=== PATIENT | male | born 2000 | race Two or more races ===

== ENCOUNTER 2018-09-13 05:55 | Inpatient (IN) | payer MEDICAID, OTHER | END 2018-09-14 12:50 | disposition home or self-care (01) | LOC: ER 05:55 → OVERFLOW 10:57 → WEST WING 16:51 | DX: N13.2 Hydronephrosis with renal and ureteral calculous obstruction (principal) ==

== ENCOUNTER 2018-09-17 00:34 | Inpatient (IN) | payer MEDICAID ==
[~2018-09-17] VITALS: Ht 172.7 cm; Wt 56.6 kg
[2018-09-17 01:37] LABS: Basophils # (auto) 0 uL; Basophils % (auto) 0.3 % (0.0-2.0); Eosinophils # (auto) 0 uL; Eosinophils % (auto) 0.4 % (0.0-7.0); Hematocrit 43.8 % (41.0-53.0); Hemoglobin 14.8 g/dL (13.5-17.5); Lymphocytes # (auto) 1.4 uL; Lymphocytes % (auto) 12.5 % (10.0-50.0); Mean Corpuscular Hemoglobin 28.8 pg (28.0-32.0); Mean Corpuscular Hgb Conc. 33.9 g/dL (32.0-36.0); Mean Corpuscular Volume 84.9 fL (80.0-100.0); Monocytes # (auto) 0.8 uL; Monocytes % (auto) 7.3 % (0.0-12.0); Neutrophils # (auto) 9.1 uL; Neutrophils % (auto) 79.5 % (37.0-80.0); Platelet Count (auto) 302 10^3/uL (140-450); Red Blood Cells 5.16 10^6/uL (4.5-5.90); Red Cell Distribution Width 13.6 % (11.8-14.3); White Blood Cell 11.4 10^3/uL (4.4-10.8)
[2018-09-17 01:45] LABS: Urine Amorphous Crystal FEW /hpf (None Seen); Urine Bacteria FEW /hpf (None Seen); Urine Blood 3+ /uL (Negative); Urine Mucus FEW (None Seen); Urine Specific Gravity 1.016 (1.001-1.035); Urine WBC 2 /hpf (0 - 3)
[2018-09-17 01:53] LABS: Albumin 4.2 g/dL (3.4-5.0); BUN/Creatinine Ratio 12.6; Calcium 10.3 mg/dL (8.5-10.1); Magnesium 2.2 mg/dL (1.6-2.6); Potassium 3.9 mmol/L (3.5-5.1)
[2018-09-17 01:55] LABS: Bilirubin, Total 0.5 mg/dL (0.2-1.0); Total Protein 7.9 g/dL (6.4-8.2)
[2018-09-17] MEDS ORDERED: SODIUM CHLORIDE 0.9% 1,000 ML IV ONE (06:27)
[2018-09-17] MEDS ORDERED: KETOROLAC TROMETH 30 MG/ML 1ML VIAL IV ONE (06:30)
[2018-09-17] MEDS ORDERED: ONDANSETRON HCL 4 MG/2 ML VIAL IV PRN (07:45)
[2018-09-17] MEDS ORDERED: ACETAMINOPHEN 500 MG TAB PO PRN (07:45)
[2018-09-17] MEDS ORDERED: SODIUM CHLORIDE 0.9% 1,000 ML IV SCH (07:45)
[2018-09-17] MEDS ORDERED: MANNITOL 20% SOLN 100 gm/500ml 300 ML IV ONE (14:15)
[2018-09-17 14:24] LABS: Alcohol, Urine < 3.0 mg/dL (0-5); Amphetamine Screen, Urine NEGATIVE (NEGATIVE); Barbiturate Scree,Urine NEGATIVE (NEGATIVE); Benzodiazephine Screen, Urine NEGATIVE (NEGATIVE); Cannabinoid Screen, Urine NEGATIVE (NEGATIVE); Cocaine Screen, Urine NEGATIVE (NEGATIVE); Opiate Scree,Urine NEGATIVE (NEGATIVE); Phencyclidine Screen, Urine NEGATIVE (NEGATIVE)
[2018-09-17] MEDS ORDERED: MANNITOL 20 % (20GM/100ML) 500 ML IV ONE (14:55)
[2018-09-17] MEDS ORDERED: FUROSEMIDE 20 MG/2 ML VIAL IV ONE (15:00)
[2018-09-17] MEDS: SODIUM CHLORIDE 0.9% 1,000 ML IV SCH ×2 (15:52→19:51)
[2018-09-17] MEDS: KETOROLAC TROMETH 30 MG/ML 1ML VIAL IV PRN (16:30)
--- NOTE | 2018-09-17 17:55 | NUR ---
MS admit from ER EZEKIEL CRAWFORD admitted to tele/MS after SBAR received. Patient oriented to SHORTY HUITRON, primary RN, unit, room, bed, and unit policies regarding patient care and visiting hours. Patient weighed by bedscale and encouraged to call if they need something. All questions and concerns addressed, patient verbalized understanding.
[2018-09-17] MEDS ORDERED: TAMSULOSIN HYDROCHLORIDE 0.4 MG CAP PO SCH (18:00)
--- NOTE | 2018-09-17 18:17 | NUR ---
Contacted Dr. Mora regarding patient diet, left a message.
--- NOTE | 2018-09-17 19:10 | NUR ---
CLOSING NOTE PATIENT RESTING IN BED, NO SIGNS OF DISTRESS NOTED. REPORT GIVEN TO NIGHT RN.
--- NOTE | 2018-09-17 19:30 | NUR ---
Opening Shift Note: A&Ox4, resting in bed. Room air, pain level 0/10, and ambulates independently. Bed locked in lowest position, side rails up x2, and call light within reach. IV 18 g in left AC running NS at 150 ml/hr inserted on 09/27/18. Skin intact. Order to strain all urine; patietn aware. POC discussed and questions answered. Will continue to round prn.
--- NOTE | 2018-09-17 19:45 | NUR ---
MRSA swab sent to lab via [email or web address] system.
[2018-09-17] MEDS: POTASSIUM CHL 20 Meq TABLET PO SCH (19:52)
--- NOTE | 2018-09-17 20:00 | NUR ---
Page sent for diet order. Per Dr. Hall, regular diet but NPO at 0000 for possible procedure.
[2018-09-17 22:17] VITALS: BP 109/55
--- NOTE | 2018-09-18 | NUR ---
NPO for possible procedure; urology consult pending.
[2018-09-18] MEDS: KETOROLAC TROMETH 30 MG/ML 1ML VIAL IV PRN (01:02)
[2018-09-18] MEDS: SODIUM CHLORIDE 0.9% 1,000 ML IV SCH ×2 (03:04→10:15)
[2018-09-18 04:48] VITALS: BP 105/56
[2018-09-18 06:54] LABS: Basophils # (auto) 0 uL; Basophils % (auto) 0.3 % (0.0-2.0); Eosinophils # (auto) 0.1 uL; Hematocrit 39.8 % (41.0-53.0); Hemoglobin 13.6 g/dL (13.5-17.5); Lymphocytes # (auto) 1.6 uL; Lymphocytes % (auto) 22.6 % (10.0-50.0); Mean Corpuscular Hemoglobin 29.2 pg (28.0-32.0); Mean Corpuscular Hgb Conc. 34.2 g/dL (32.0-36.0); Mean Corpuscular Volume 85.5 fL (80.0-100.0); Monocytes # (auto) 0.9 uL; Monocytes % (auto) 13.1 % (0.0-12.0); Neutrophils # (auto) 4.4 uL; Nucleated Red Blood Cells % 0.1 %; Platelet Count (auto) 249 10^3/uL (140-450); Red Blood Cells 4.66 10^6/uL (4.5-5.90); Red Cell Distribution Width 13.7 % (11.8-14.3); White Blood Cell 6.9 10^3/uL (4.4-10.8)
[2018-09-18 07:02] LABS: BUN/Creatinine Ratio 6.1; Calcium 10.3 mg/dL (8.5-10.1); Potassium 3.9 mmol/L (3.5-5.1)
--- NOTE | 2018-09-18 07:50 | NUR ---
Opening Shift Note Assumed care of patient, awake and alert. No S/S of distress/SOB or pain. Instructed on POC and to call for assist PRN, will continue to monitor for changes Q1hr and PRN.
[2018-09-18 09:00] VITALS: BP 101/68
[2018-09-18] MEDS ORDERED: FUROSEMIDE 20 MG/2 ML VIAL IV SCH (10:00)
[2018-09-18] MEDS: POTASSIUM CHL 20 Meq TABLET PO SCH (10:04)
--- NOTE | 2018-09-18 11:10 | NUR ---
Rocio, charge nurse, informed me that patient wants to leave AMA.
--- NOTE | 2018-09-18 11:12 | NUR ---
IV removal per patient request IV DC'd with clean sterile technique, catheter fully intact. Pressure dressing applied to site. Patient tolerated well.
--- NOTE | 2018-09-18 11:15 | NUR ---
AMA Note EZEKIEL CRAWFORD states they want to leave the hospital Against Medical Advice (AMA). Patient encouraged to stay for further treatment/stabilization. Patient advised of the risks and benefits of leaving AMA. Patient verbalized understanding. Patient encouraged to return to the ER if symptoms do not improve or worsen.
--- NOTE | 2018-09-18 11:20 | NUR ---
CALLED DR. SWARTZ, LEFT A MESSAGE RE: PATIENT LEFT AMA.
== END 2018-09-18 11:13 | disposition left against medical advice (07) | DRG 465 ==
LOC: ER 00:35 → OVERFLOW 07:38 → WEST WING 18:08
PROVIDERS: ADMIT Nurse Practitioner Family; ATTEND Hospitalist
DX: N13.2 Hydronephrosis with renal and ureteral calculous obstruction (principal); Z82.49 Family history of ischemic heart disease and other diseases of the circulatory system; Z83.3 Family history of diabetes mellitus; Z87.442 Personal history of urinary calculi
CPT/HCPCS: 36415; 74018; 74176; 80048; 80053; 80307; 81001; 82150; 83690; 83735; 85025; 87081; 96361; 96365; 96375; G0378; J1885; J2405

== ENCOUNTER 2019-11-15 20:11 | Emergency (ER) | payer MEDICAID ==
[~2019-11-15] VITALS: Ht 170.2 cm; Wt 68.7 kg
[2019-11-15 20:56] VITALS: BP 122/78
== END 2019-11-16 00:59 | disposition left against medical advice (07) ==
LOC: ER 20:11
DX: M79.604 Pain in right leg (principal); Z53.21 Procedure and treatment not carried out due to patient leaving prior to being seen by health care provider

== ENCOUNTER 2020-06-21 14:34 | Emergency (ER) | payer MEDICAID ==
[~2020-06-21] VITALS: Ht 177.8 cm; Wt 70.4 kg
[2020-06-21 15:19] LABS: Urine Bacteria NONE SEEN /hpf (None Seen); Urine Blood 2+ /uL (Negative); Urine Specific Gravity 1.007 (1.001-1.035); Urine WBC 2 /hpf (0 - 3)
[2020-06-21 15:54] LABS: Basophils # (auto) 0 10 ^3/uL (0-0.2); Basophils % (auto) 0.2 % (0.0-2.0); Eosinophils # (auto) 0.1 10 ^3/uL (0-0.8); Eosinophils % (auto) 0.7 % (0.0-7.0); Lymphocytes # (auto) 1.5 10 ^3/uL (0.4-5.4); Mean Corpuscular Hemoglobin 27.9 pg (28.0-32.0); Mean Corpuscular Hgb Conc. 33.2 g/dL (32.0-36.0); Monocytes # (auto) 1.2 10 ^3/uL (0-1.3); Monocytes % (auto) 10.7 % (0.0-12.0); Neutrophils # (auto) 8.7 10 ^3/uL (1.6-8.6); Neutrophils % (auto) 75.4 % (37.0-80.0); Nucleated Red Blood Cells % 0.1 %; Platelet Count (auto) 327 10^3/uL (140-450); Red Blood Cells 5.35 10^6/uL (4.5-5.90); Red Cell Distribution Width 14.2 % (11.8-14.3); White Blood Cell 11.5 10^3/uL (4.4-10.8)
[2020-06-21] MEDS ORDERED: ONDANSETRON HCL 4 MG/2 ML VIAL IV ONE (18:30)
[2020-06-21] MEDS ORDERED: KETOROLAC TROMETH 30 MG/ML 1ML VIAL IV ONE (18:30)
[2020-06-21] MEDS ORDERED: SODIUM CHLORIDE 0.9% 1,000 ML IV ONE (18:30)
[2020-06-21 18:45] LABS: Alcohol, Urine < 3.0 mg/dL (0-10); Amphetamine Screen, Urine NEGATIVE (NEGATIVE); Barbiturate Scree,Urine NEGATIVE (NEGATIVE); Benzodiazephine Screen, Urine NEGATIVE (NEGATIVE); Cannabinoid Screen, Urine NEGATIVE (NEGATIVE); Cocaine Screen, Urine NEGATIVE (NEGATIVE); Opiate Scree,Urine NEGATIVE (NEGATIVE); Phencyclidine Screen, Urine NEGATIVE (NEGATIVE)
[2020-06-21 18:47] LABS: Albumin 4.4 g/dL (3.4-5.0); Calcium 11.4 mg/dL (8.5-10.1); Potassium 4.2 mmol/L (3.5-5.1)
[2020-06-21 18:51] LABS: BUN/Creatinine Ratio 9.9; Bilirubin, Total 0.3 mg/dL (0.2-1.0)
[2020-06-21 21:00] VITALS: BP 116/71
== END 2020-06-21 21:38 | disposition home or self-care (01) ==
LOC: ER 14:34
DX: N20.0 Calculus of kidney (principal)
CPT/HCPCS: 36415; 74176; 80053; 80307; 81001; 85025; 96361; 96374; 96375; 99285; J1885; J2405

== ENCOUNTER 2020-07-12 07:51 | Emergency (ER) | payer MEDICAID ==
[~2020-07-12] VITALS: Ht 172.7 cm; Wt 68.0 kg
[2020-07-12] MEDS ORDERED: KETOROLAC TROMETH 30 MG/ML 1ML VIAL IV ONE (08:15)
[2020-07-12] MEDS ORDERED: SODIUM CHLORIDE 0.9% 1,000 ML IVB ONE (08:15)
[2020-07-12] MEDS ORDERED: METOCLOPRAMIDE HCL 5MG/ml INJ 2ml VIAL IV ONE (08:15)
[2020-07-12 08:38] LABS: Urine Bacteria NONE SEEN /hpf (None Seen); Urine Blood 2+ /uL (Negative); Urine Specific Gravity 1.006 (1.001-1.035); Urine WBC 21 /hpf (0 - 3)
[2020-07-12 10:39] VITALS: BP 125/63
== END 2020-07-12 11:12 | disposition home or self-care (01) ==
LOC: ER 07:51
DX: N20.0 Calculus of kidney (principal); N13.30 Unspecified hydronephrosis
CPT/HCPCS: 76775; 81001; 96361; 96374; 96375; 99284; J1885; J2765; J7030

== ENCOUNTER 2020-08-19 18:08 | Emergency (ER) | payer MEDICAID ==
[~2020-08-19] VITALS: Ht 172.7 cm; Wt 54.4 kg
[2020-08-19 18:46] VITALS: BP 147/81
[2020-08-19] MEDS ORDERED: KETOROLAC TROMETH 60MG/2ML VIAL ONE (20:25)
[2020-08-19] MEDS ORDERED: KETOROLAC TROMETH 60MG/2ML VIAL IM ONE (20:30)
[2020-08-19 20:53] LABS: Urine Bacteria FEW /hpf (None Seen); Urine Blood 2+ /uL (Negative); Urine Mucus FEW (None Seen); Urine Specific Gravity 1.015 (1.001-1.035); Urine WBC 1 /hpf (0 - 3)
[2020-08-19 21:24] LABS: Basophils # (auto) 0 10 ^3/uL (0-0.2); Basophils % (auto) 0.3 % (0.0-2.0); Eosinophils # (auto) 0.1 10 ^3/uL (0-0.8); Eosinophils % (auto) 0.6 % (0.0-7.0); Hemoglobin 14.4 g/dL (13.5-17.5); Lymphocytes # (auto) 1.5 10 ^3/uL (0.4-5.4); Lymphocytes % (auto) 14.9 % (10.0-50.0); Mean Corpuscular Hemoglobin 27.4 pg (28.0-32.0); Mean Corpuscular Hgb Conc. 32.8 g/dL (32.0-36.0); Mean Corpuscular Volume 83.6 fL (80.0-100.0); Monocytes # (auto) 1.2 10 ^3/uL (0-1.3); Monocytes % (auto) 12.2 % (0.0-12.0); Neutrophils # (auto) 7.1 10 ^3/uL (1.6-8.6); Platelet Count (auto) 370 10^3/uL (140-450); Red Blood Cells 5.26 10^6/uL (4.5-5.90); Red Cell Distribution Width 14.2 % (11.8-14.3); White Blood Cell 9.9 10^3/uL (4.4-10.8)
[2020-08-19 21:34] LABS: Albumin 4.3 g/dL (3.4-5.0); Calcium 11.1 mg/dL (8.5-10.1); Potassium 3.9 mmol/L (3.5-5.1)
[2020-08-19 21:39] LABS: Alcohol, Urine < 3.0 mg/dL (0-10); Amphetamine Screen, Urine NEGATIVE (NEGATIVE); Barbiturate Scree,Urine NEGATIVE (NEGATIVE); Benzodiazephine Screen, Urine NEGATIVE (NEGATIVE); Cannabinoid Screen, Urine NEGATIVE (NEGATIVE); Cocaine Screen, Urine NEGATIVE (NEGATIVE); Opiate Scree,Urine NEGATIVE (NEGATIVE); Phencyclidine Screen, Urine NEGATIVE (NEGATIVE)
[2020-08-19 21:39] LABS: BUN/Creatinine Ratio 8.1; Bilirubin, Total 0.4 mg/dL (0.2-1.0); Total Protein 7.8 g/dL (6.4-8.2)
== END 2020-08-19 23:21 | disposition home or self-care (01) ==
LOC: ER 18:08
DX: N13.2 Hydronephrosis with renal and ureteral calculous obstruction (principal)
CPT/HCPCS: 36415; 74176; 80053; 80307; 81001; 85025; 96372; 99284; J1885

== ENCOUNTER 2020-09-17 07:42 | Emergency (ER) | payer MEDICAID ==
[~2020-09-17] VITALS: Ht 170.2 cm; Wt 49.9 kg
[2020-09-17 07:45] VITALS: BP 121/86
[2020-09-17] MEDS ORDERED: SODIUM CHLORIDE 0.9% 1,000 ML IV ONE (08:00)
[2020-09-17] MEDS ORDERED: TAMSULOSIN HYDROCHLORIDE 0.4 MG CAP PO ONE (08:00)
[2020-09-17] MEDS ORDERED: ONDANSETRON HCL 4 MG/2 ML VIAL IV ONE (08:00)
[2020-09-17] MEDS ORDERED: KETOROLAC TROMETH 30 MG/ML 1ML VIAL IV ONE (08:00)
[2020-09-17 08:22] LABS: Basophils # (auto) 0 10 ^3/uL (0-0.2); Basophils % (auto) 0.6 % (0.0-2.0); Eosinophils # (auto) 0.1 10 ^3/uL (0-0.8); Eosinophils % (auto) 1.5 % (0.0-7.0); Hematocrit 42.1 % (41.0-53.0); Hemoglobin 14.3 g/dL (13.5-17.5); Lymphocytes # (auto) 2.4 10 ^3/uL (0.4-5.4); Lymphocytes % (auto) 39.2 % (10.0-50.0); Mean Corpuscular Hemoglobin 28.5 pg (28.0-32.0); Mean Corpuscular Volume 83.7 fL (80.0-100.0); Monocytes # (auto) 0.7 10 ^3/uL (0-1.3); Monocytes % (auto) 11.7 % (0.0-12.0); Neutrophils # (auto) 2.8 10 ^3/uL (1.6-8.6); Platelet Count (auto) 329 10^3/uL (140-450); Red Blood Cells 5.03 10^6/uL (4.5-5.90); Red Cell Distribution Width 14.5 % (11.8-14.3)
[2020-09-17 08:35] LABS: BUN/Creatinine Ratio 14.7; Potassium 3.9 mmol/L (3.5-5.1)
== END 2020-09-17 09:36 | disposition home or self-care (01) ==
LOC: ER 07:42
DX: R10.9 Unspecified abdominal pain (principal); Z87.442 Personal history of urinary calculi
CPT/HCPCS: 36415; 80048; 85025; 96361; 96374; 96375; 99284; J1885; J2405; J7030

== ENCOUNTER 2021-08-07 04:14 | Emergency (ER) | payer MEDICAID ==
[~2021-08-07] VITALS: Ht 172.7 cm; Wt 55.8 kg
[2021-08-07] MEDS ORDERED: KETOROLAC TROMETH 30 MG/ML 1ML VIAL IV ONE (05:15)
[2021-08-07] MEDS ORDERED: LIDOCAINE 1% HCL (LOCAL ANESTH.) INJ 20ML MDV ID ONE (05:15)
[2021-08-07] MEDS ORDERED: MORPHINE SULFATE 4 MG/ML SYR/VIAL IV ONE (05:15)
[2021-08-07] MEDS ORDERED: LIDOCAINE VISCOUS 2% 15ML UD MT ONE (05:30)
[2021-08-07 05:50] LABS: Albumin 4.1 g/dL (3.4-5.0); BUN/Creatinine Ratio 14.1; Calcium 11.2 mg/dL (8.5-10.1)
[2021-08-07 05:52] LABS: INR 1.05 (0.9-1.15); Partial Thromboplastin Time 20.5 sec (23.6-33.0)
[2021-08-07 05:53] LABS: Bilirubin, Total 0.4 mg/dL (0.2-1.0); Total Protein 7.7 g/dL (6.4-8.2)
[2021-08-07 05:55] LABS: Potassium 4.5 mmol/L (3.5-5.1)
[2021-08-07 07:07] LABS: Basophils # (auto) 0 10 ^3/uL (0-0.2); Basophils % (auto) 0.5 % (0.0-2.0); Eosinophils # (auto) 0.1 10 ^3/uL (0-0.8); Eosinophils % (auto) 0.8 % (0.0-7.0); Hematocrit 41.8 % (41.0-53.0); Lymphocytes # (auto) 2.4 10 ^3/uL (0.4-5.4); Lymphocytes % (auto) 27.4 % (10.0-50.0); Mean Corpuscular Hemoglobin 28.1 pg (28.0-32.0); Mean Corpuscular Hgb Conc. 33.5 g/dL (32.0-36.0); Mean Corpuscular Volume 83.9 fL (80.0-100.0); Monocytes # (auto) 0.8 10 ^3/uL (0-1.3); Neutrophils # (auto) 5.5 10 ^3/uL (1.6-8.6); Neutrophils % (auto) 62.3 % (37.0-80.0); Nucleated Red Blood Cells % 0.1 %; Red Blood Cells 4.98 10^6/uL (4.5-5.90); White Blood Cell 8.8 10^3/uL (4.4-10.8)
[2021-08-07 07:44] VITALS: BP 99/58
== END 2021-08-07 07:00 | disposition home or self-care (01) ==
LOC: ER 04:14
DX: T19.4XXA Foreign body in penis, initial encounter (principal); X58.XXXA Exposure to other specified factors, initial encounter; Y93.89 Activity, other specified; Y92.89 Other specified places as the place of occurrence of the external cause; Y99.8 Other external cause status
CPT/HCPCS: 36415; 72170; 80053; 85025; 85610; 85730; 86850; 86900; 86901; 96374; 96375; 99285; J1885; J2001; J2270

== ENCOUNTER 2022-04-21 13:00 | Emergency (ER) | payer MEDICAID ==
[~2022-04-21] VITALS: Ht 175.3 cm; Wt 54.5 kg
[2022-04-21 13:47] LABS: Urine Bacteria NONE SEEN /hpf (None Seen); Urine Blood 1+ /uL (Negative); Urine Specific Gravity 1.005 (1.001-1.035); Urine WBC <1 /hpf (0 - 3)
[2022-04-21] MEDS ORDERED: SULF400T11 PO (15:17)
[2022-04-21 15:18] VITALS: BP 106/65
== END 2022-04-21 15:31 | disposition home or self-care (01) ==
LOC: ER 13:00
DX: R30.0 Dysuria (principal); Z87.442 Personal history of urinary calculi; Z79.899 Other long term (current) drug therapy
CPT/HCPCS: 81001

== ENCOUNTER 2022-04-21 18:30 | Emergency (ER) | payer MEDICAID ==
[~2022-04-21] VITALS: Ht 175.3 cm; Wt 54.5 kg
[~2022-04-21 18:30] MED LIST: SULF400T11 PO
[2022-04-21 18:45] VITALS: BP 104/75
== END 2022-04-22 01:00 | disposition left against medical advice (07) ==
LOC: ER 18:30
DX: R42 Dizziness and giddiness (principal); R10.30 Lower abdominal pain, unspecified; R11.0 Nausea; Z53.21 Procedure and treatment not carried out due to patient leaving prior to being seen by health care provider
CPT/HCPCS: 93005

== ENCOUNTER 2022-10-20 17:24 | Emergency (ER) | payer MEDICAID ==
[~2022-10-20] VITALS: Ht 172.7 cm; Wt 76.4 kg
[2022-10-20] MEDS ORDERED: ERY05OO OP (18:57)
[2022-10-20 19:02] VITALS: BP 124/67
== END 2022-10-20 19:05 | disposition home or self-care (01) ==
LOC: ER 17:24
DX: S05.01XA Injury of conjunctiva and corneal abrasion without foreign body, right eye, initial encounter (principal); Z87.442 Personal history of urinary calculi; X58.XXXA Exposure to other specified factors, initial encounter; Y93.89 Activity, other specified; Y92.098 Other place in other non-institutional residence as the place of occurrence of the external cause; Y99.8 Other external cause status

== ENCOUNTER 2022-12-16 08:24 | Emergency (ER) | payer MEDICAID ==
[~2022-12-16] VITALS: Ht 175.3 cm; Wt 80.7 kg
[~2022-12-16 08:24] MED LIST changes: +ERY05OO OP
[2022-12-16 08:53] VITALS: BP 112/79
[2022-12-16] MEDS ORDERED: AMOX875T3 PO (09:03)
== END 2022-12-16 09:14 | disposition home or self-care (01) ==
LOC: ER 08:24
DX: H66.91 Otitis media, unspecified, right ear (principal); Z87.442 Personal history of urinary calculi; Z88.1 Allergy status to other antibiotic agents

== ENCOUNTER 2024-01-14 18:41 | Emergency (ER) | payer MEDICAID, OTHER ==
[~2024-01-14] VITALS: Ht 172.7 cm; Wt 88.0 kg
[~2024-01-14 18:41] MED LIST changes: +AMOX875T3 PO
[2024-01-14 20:23] VITALS: BP 136/65; PULSE 82; RESP 16; TEMP 98.3; O2SAT 99
[2024-01-14] MEDS: FLUORESCEIN SOD OPTH TEST STRIP RIGHTEYE ONE (20:23)
[2024-01-14] MEDS: TETRACAINE HCL 0.5% OPTH(EYE) SOLN 4ML RIGHTEYE ONE (20:23)
== END 2024-01-14 20:53 | disposition home or self-care (01) ==
LOC: ER 18:41
DX: T26.41XA Burn of right eye and adnexa, part unspecified, initial encounter (principal); Z87.442 Personal history of urinary calculi; X10.2XXA Contact with fats and cooking oils, initial encounter; Y93.89 Activity, other specified; Y92.69 Other specified industrial and construction area as the place of occurrence of the external cause; Y99.8 Other external cause status
CPT/HCPCS: 16000